=== PATIENT | male | born 1980 | race Caucasian/White ===

== ENCOUNTER 2024-08-17 07:59 | Outpatient (CLI) | payer BC, SELFPAY ==
--- OUTSIDE RECORDS SUMMARY | 2024-08-17 08:08 | XMS_ITS | Referral Summary ---
Author Organization [address] lto Address [address] [facility] [place] [address] Care Team Providers Care Rental Boats Caretaker Name Role Phone Miquel Van MD Primary Care Provider [phone]- [phone] Allergies No known active allergies Medications allopurinoL (ZYLOPRIM) 300 mg tablet Take 300 mg by mouth daily Active atorvastatin (LIPITOR) 20 mg tablet Take 20 mg by mouth daily Active lisinopriL (PRINIVIL,ZESTRI L) 20 mg tablet Take 20 mg by mouth daily Active Active Problems No known active problems Social History Tobacco Use Types Packs/Day Years Used Date Smoking Tobacco: Never Assessed Sex and Gender Information Value Date Recorded Sex Assigned at Not on file Legal Sex Male 11:39 AM FLOWER GRADER Gender Identity Not on file Sexual Orientation Not on file Last Filed Vital Signs Vital Sign Reading Time Taken Comments Blood Pressure 142/100 05/23/2022 4:29 PM FLOWER GRADER Pulse 105 05/23/2022 4:29 PM FLOWER GRADER Temperature - - Respiratory Rate 16 05/23/2022 4:29 PM FLOWER GRADER Oxygen Saturation 98% 05/23/2022 4:29 PM FLOWER GRADER Inhaled Oxygen Concentration - - Weight 101.6 kg (224 lb) 05/23/2022 4:29 PM FLOWER GRADER Height 187.7 cm (6' 1.9 ) 05/23/2022 4:29 PM FLOWER GRADER Body Mass Index 28.84 05/23/2022 4:29 PM FLOWER GRADER Plan of Treatment Not on file Insurance [facility] CHOICE PLUS Care Teams Rental Boats Caretaker Relationship Specialty Start Date End Date Miquel Van MD [address] [facility] [address] [place] [address] PCP - General Family Medicine 05/23/22
--- OUTSIDE RECORDS SUMMARY | 2024-08-17 08:08 | XMS_ITS | Encounter Summary ---
Author Organization [facility] Address [facility] [place] [address] Care Team Providers Care Truss Maker Name Role Phone Miquel Van MD Primary Care Provider Encounter Details Date Type Department Care Team (Late st Contact Info) Description 09/13/[address] [facility] [address], [place] [id number] Víctor Pandey MD [address] [id number] Social History Tobacco Use Types Packs/Day Years Used Date Smoking Tobacco: Never Smokeless Tobacco: Never Alcohol Use Standard Drinks/Week Comments Yes 0 (1 standard drink = 0.6 oz pur e alcohol) socially Sex and Gender Information Value Date Recorded Sex Assigned at Not on file Legal Sex Male 6:27 PM CDT Gender Identity Not on file Sexual Orientation Not on file documented as of this encounter Functional Status * RETIRED Are you deaf or do you have serious difficulty hearing Answer Date of Assessment Author Status No 06/01/2019 9:00 AM HUMAN RESOURCES PSYCHOLOGIST Activ e * RETIRED Are you blind or do you have serious difficulty seeing, even when wearing glasses? Answer Date of Assessment Author Status No 06/01/2019 9:00 AM HUMAN RESOURCES PSYCHOLOGIST Activ e * Do you have serious difficulty walking or climbing stairs? Answer Date of Assessment Author Status No 06/01/2019 9:00 AM HUMAN RESOURCES PSYCHOLOGIST Tania Barfield RN Active * Do you have difficulty dressing or bathing? Answer Date of Assessment Author Status No 06/01/2019 9:00 AM Tania Ryan RN Active * Because of a physical, mental, or emotional condition, do you have difficulty doing errands alone such as visiting a doctor's office or shopping? Answer Date of Assessment Author Status No 06/01/2019 9:00 AM Tania Ryan RN Active documented as of this encounter Mental Status * Because of a physical, mental, or emotional condition, do you have serious difficulty concentrating, remembering, or making decisions? Answer Entry Date Author Status No 06/01/2019 9:00 AM Tania Ryan RN Active documented in this encounter Plan of Treatment Not on file documented as of this encounter Visit Diagnoses Diagnosis Diverticulitis- Primary Diverticulitis of colon (without mention of hemorrhage) documented in this encounter Care Teams Truss Maker Relationship Specialty Start Date End Date Miquel Van MD [address] [address] PCP - General 06/04/16 documented as of this encounter
--- OUTSIDE RECORDS SUMMARY | 2024-08-17 08:08 | XMS_ITS | Clinical Summary ---
Author Organization [facility] Address [address] [place] [address] Care Team Providers Care Applied Anthropologist Name Role Phone Miquel Van MD Primary Care Provider Allergies No known active allergies Medications naproxen sodium (ALEVE) 220 MG tablet Take 220 mg by mouth 2 (two) times daily with meals. Active lisinopril 20 MG tabletIndications :Mixed hyperlipidemia,Es sential hypertension Take 1 tablet (20 mg total) by mouth daily. 90 tablet 3 09/12/2020 Active atorvastatin 20 MG tabletIndications :Mixed hyperlipidemia,Es sential hypertension Take 1 tablet (20 mg total) by mouth daily. 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 TAKE ONE TABLET BY MOUTH ONCE DAILY 90 tablet 07/27/2021 Active Active Problems Problem Noted Date Diagnosed Date Hypokalemia 06/21/2019 Esophageal dysphagia 06/21/2019 Diverticulitis 06/01/2019 Overview (06/01/2019): Microperforation Leukocytosis 06/01/2019 Seasonal allergic rhinitis due to pollen 020 Hypertriglyceridemia 06/05/2016 Primary gout 08/25/2012 Essential hypertension 03/30/2012 Hyperlipidemia 02/06/2012 Resolved Problems Problem Noted Date Diagnosed Date Resolved Date Encounter for preventive health examination 02/06/2012 01/07/2020 Immunizations Immunization Administration Dates Next Due Afluria 36 MONTHS+ (Prefilled Syringe IIV4) 07/2019() Family History Relation Status Comments Father Mother Social History Tobacco Use Types Packs/Day Years Used Date Smoking Tobacco: Never Smokeless Tobacco: Never Tobacco Cessation:Counseling Given: No Alcohol Use Standard Drinks/Week Comments Yes 0 (1 standard drink = 0.6 oz pur e alcohol) socially PHQ-2 Answer Date Recorded PHQ-2 Score - If the patient scores above 3, please move on to questions 3-9 0 06/29/2020 Sex and Gender Information Value Date Recorded Sex Assigned at Not on file Legal Sex Male 6:27 PM CDT Gender Identity Not on file Sexual Orientation Not on file Last Filed Vital Signs Vital Sign Reading Time Taken Comments Blood Pressure 140/80 09/12/2020 12:58 PM CDT Pulse 103 09/12/2020 12:58 PM CDT Temperature 36.2 C (97.1 F) 09/12/2020 12:58 PM CDT Respiratory Rate 16 03/27/2020 1:05 PM LADLE CLEANER Oxygen Saturation 97% 09/12/2020 12:58 PM CDT Inhaled Oxygen Concentration - - Weight 103 kg (227 lb) 09/12/2020 12:58 PM CDT Height 190.5 cm (6' 3 ) 07/27/2020 1:34 PM CDT Body Mass Index 28.37 07/27/2020 1:34 PM CDT Plan of Treatment Health Maintenance Due Date Last Done Comments Colorectal Cancer Screening Colonoscopy (10 Years) 1978 Annual Physical 1981 Hepatitis C 02/05/1996 DTaP, Tdap and Td Vaccines ( 1 - Tdap) 1997 Hepatitis B Vaccines (1 of 3 - 19+ 3-dose series) 1997 COVID-19 Vaccine (2023-2 5 season) 2023 Meningococcal B Vaccine Aged Out No l onger eligible based on patient's age to complete this topic Meningococcal Vaccine Aged Out No marcia sam eligible based on patient's age to complete this topic Pneumococcal Vaccine: Pediat rics (0 to 5 Years) and At-Risk Patients (6 to 49 Years) Aged Out No longer eligible b ased on patient's age to complete this topic RSV Immunizations Under 20 Months Aged Out No longer eligible based on patient's age to complete this topic Insurance [facility] Advance Directives * Full Code (Latest Code Status on File) Date Activated Date Inactivated Comments 06/01/2019 3:19 AM 06/04/2019 1:04 PM Care Teams Applied Anthropologist Relationship Specialty Start Date End Date Miquel Van MD [address] [facility] [address] [place] [address] PCP - General 06/04/16
--- OUTSIDE RECORDS SUMMARY | 2024-08-17 08:08 | XMS_ITS | Clinical Summary ---
Author Organization [address] lt Address [address] [facility] [place] [address] Care Team Providers Care Internet Cafe Manager Name Role Phone Miquel aVn MD Primary Care Provider +1- [phone] Allergies No known active allergies Medications allopurinoL [...] on file Legal Sex Male 11:39 AM OUTDOOR ADVENTURE LEADER Gender Identity Not on file Sexual Orientation Not on file Obstetrics History Last Filed Vital Signs Vital Sign Reading Time Taken Comments Blood Pressure 142/100 05/23/2022 4:29 PM OUTDOOR ADVENTURE LEADER Pulse 105 05/23/2022 4:29 PM OUTDOOR ADVENTURE LEADER Temperature - - Respiratory Rate 16 05/23/2022 4:29 PM OUTDOOR ADVENTURE LEADER Oxygen Saturation 98% 05/23/2022 4:29 PM OUTDOOR ADVENTURE LEADER Inhaled Oxygen Concentration - - Weight 101.6 kg (224 lb) 05/23/2022 4:29 PM OUTDOOR ADVENTURE LEADER Height 187.7 cm (6' 1.9 ) 05/23/2022 4:29 PM OUTDOOR ADVENTURE LEADER Body Mass Index 28.84 05/23/2022 4:29 PM OUTDOOR ADVENTURE LEADER Plan of Treatment Health Maintenance Due Date Last Done Comments Colon Cancer Screening-Colonoscopy 1978 Depression Screening 1978 Hepatitis C Screening 1978 DTaP/Tdap/Td Vaccine (1 - Tdap) 1989 Hepatitis B Screening 02/05/1996 Regular Well Visit/Exam 18-64 02/05/1996 Covid-19 Vaccine (3 - 2023-2 5 season) 2023 01/22/2021, 12/08/2020 Influenza Vaccine (#1) 2023 HPV Vaccines Aged Out No longer eligi ble based on patient's age to complete this topic Pneumococcal vaccine <65 Aged Out No longer eligible based on patient's age to complete this topic Insurance [facility] CHOICE PLUS [facility] H[facility]/PPO Address: [place] [address] Care Teams Internet Cafe Manager Relationship Specialty Start Date End Date Miquel Van MD [address] [facility] [address] [place], [place] [id number] PCP - General Family Medicine 05/23/22
[2024-08-17 19:35] LABS: Alanine Aminotransferase 25 U/L (6-50); Albumin Level 4.4 g/dL (3.5-5.1); Alkaline Phosphatase 70 U/L (38-126); Anion Gap 9 mmol/L (4-12); Aspartate Amino Transferase 55 U/L (17-59); Bilirubin,Total 0.7 mg/dL (0.2-1.3); Blood Urea Nitrogen 14 mg/dL (9-20); Calcium 9.4 mg/dL (8.4-10.2); Carbon Dioxide 28 mmol/L (22-30); Chloride 104 mmol/L (98-107); Cholesterol 242 mg/dL (0-200); Estimated Glomerular Filt Rate > 60; Glucose 88 mg/dL (65-110); HDL Direct 43 mg/dL; Magnesium 2.4 mg/dL (1.6-2.3); Potassium 4.6 mmol/L (3.4-5.0); Sodium 141 mmol/L (137-145); Triglycerides 287 mg/dL (<150); Uric Acid 8.8 mg/dL (3.5-8.5)
[2024-08-17 19:38] LABS: Basophils Absolute Auto 0.1 K/mm3 (0.0-0.1); Basophils Percent Auto 1.2 % (0.2-1.2); Eosinophils Absolute Auto 0.1 K/mm3 (0-0.3); Eosinophils Percent Auto 1.5 % (0-4.4); Hematocrit 49.2 % (42.0-52.0); Hemoglobin 15.8 g/dL (14.0-18.0); Immature Granulocyte Absolute 0.03 K/mm3 (0.00-0.031); Immature Granulocyte Percent A 0.4 % (0-0.5); Lymphocytes Absolute Auto 2.08 K/mm3 (0.9-3.2); Lymphocytes Percent Auto 27.7 % (18.3-44.2); Mean Corpuscular HGB Conc 32.1 g/dl (32-36); Mean Corpuscular Hemoglobin 30.2 pg (26-34); Mean Corpuscular Volume 93.9 fl (80-100); Mean Platelet Volume 10.9 fl (7.4-10.4); Monocytes Absolute Auto 0.6 K/mm3 (0.1-0.6); Neutrophils Absolute Auto 4.6 K/mm3 (1.3-6.7); Neutrophils Percent Auto 61.2 % (45.5-73.1); Platelet Count Result 246 k/mm3 (150-375); Red Blood Count 5.24 M/mm3 (4.6-6.20); Red Cell Distribution Width 13.2 % (11.5-14.5); White Blood Count 7.5 K/mm3 (4.5-10.0)
[2024-08-17 19:46] LABS: LDL Cholesterol Direct 134 mg/dL
== END 2024-08-17 08:00 | disposition home or self-care (01) ==
LOC: ANHBWCLAB 08:01
PROVIDERS: PCP Nurse Practitioner Adult Health; Visit Provider Nurse Practitioner Adult Health
DX: R53.83 Other fatigue (principal); I10 Essential (primary) hypertension; M10.9 Gout, unspecified
CPT/HCPCS: 36415; 80053; 80061; 83735; 84402; 84403; 84550; 85025